=== PATIENT | male | born 1985 | race Caucasian/White ===

== ENCOUNTER 2017-03-12 08:04 | Emergency (ER) | payer OTHER ==
[~2017-03-12] VITALS: Ht 172.7 cm; Wt 80.0 kg
[2017-03-12 08:07] VITALS: Ht 172.7 cm; Wt 80.0 kg
[2017-03-12] MEDS ORDERED: LORAZEPAM 2 MG INJ IM ONE (09:30)
[2017-03-12 09:44] LABS: BASOPHIL # 0.1 10^3/ul (0.0-0.1); BASOPHILS % 0.4 % (0.0-2.0); EOSINOPHILS % 0.1 % (0.0-7.0); HEMATOCRIT 45.7 % (42.0-52.0); HEMOGLOBIN 15.6 g/dl (14.0-18.0); LYMPHOCYTES # 2.6 10^3/ul (0.8-2.9); LYMPHOCYTES % 14.1 % (15.0-51.0); MEAN CORPUSCULAR HEMOGLOBIN 30.9 pg (29.0-33.0); MEAN CORPUSCULAR HGB CONC 34.1 g/dl (32.0-37.0); MEAN CORPUSCULAR VOLUME 90.5 fl (82.0-101.0); MEAN PLATELET VOLUME 9.8 fl (7.4-10.4); MONOCYTE # 0.9 10^3/ul (0.3-0.9); MONOCYTES % 5.1 % (0.0-11.0); NEUTROPHIL # 14.4 10^3/ul (1.6-7.5); NEUTROPHILS % 79.7 % (39.0-77.0); PLATELET COUNT 389 10^3/UL (140-415); RED BLOOD COUNT 5.05 10^6/ul (4.70-6.10); RED CELL DISTRIBUTION WIDTH 12.5 % (11.5-14.5); WHITE BLOOD COUNT 18.1 10^3/ul (4.8-10.8)
--- NOTE | 2017-03-12 10:03 | RADRPT ---
PROCEDURE: CT Brain without contrast. CLINICAL INDICATION: Seizure TECHNIQUE: Routine CT scan of the brain was performed on a high resolution multi detector scanner without intravenous contrast. One or more of the following dose reduction techniques were used: Auto mated exposure control; Adjustment of the mA and/or kV according to patient size; Use of iterative r econstruction technique. CTDI = 44 mGy. DLP = 810 mGy-cm. DICOM images are available. COMPARISON: No prior relevant examinations are available for comparison. FINDINGS: Examination is degraded due to patient motion artifact. Hemorrhage: No definite evidence of intracranial hemorrhage. Acute ischemic changes: No evidence of acute ischemic changes. Mass effect: None. Parenchymal volume: Within normal limits for age. Ventricular system: Concordant with parenchymal volume. Chronic changes: Parenchymal attenuation is within normal limits. Extracranial soft tissues: Unremarkable. Calvarium: No fractures. Paranasal sinuses: Visualized paranasal sinuses are clear. Mastoid air cells: Visualized mastoid air cells are clear. IMPRESSION: Examination is degraded due to patient motion artifact. No definite evidence of mass effect, ischemic changes, or extra-axial fluid collections. MRI of the brain recommended for further evaluation. RPTAT: AADD .Rangel Schmidt MD, MD Date Time Electronically viewed and signed by .Rangel Schmidt MD, on 03/12/2017 10:02 .B/
[2017-03-12 10:09] LABS: CALCIUM 9.3 mg/dl (8.4-10.2); CREATININE 0.79 mg/dl (0.61-1.24); POTASSIUM 3.6 mmol/L (3.5-5.1)
[2017-03-12 10:39] LABS: ACETAMINOPHEN < 10.0 ug/ml (10.0-30.0); ETHANOL < 10.0 mg/dl; SALICYLATE < 1.0 mg/dl (5.0-30.0)
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
[2017-03-12 11:48] VITALS: BP 142/79; PULSE 98; RESP 17; TEMP 98.2
== END 2017-03-12 11:51 | disposition home or self-care (01) ==
LOC: E/R 08:04
DX: G40.909 Epilepsy, unspecified, not intractable, without status epilepticus (principal)
CPT/HCPCS: 36415; 70450; 80048; 80306; 82962; 85025; 96372